=== PATIENT | male | born 1975 | race Two or more races ===

== ENCOUNTER 2019-06-24 23:00 | Emergency (ER) | payer OTHER ==
[~2019-06-24] VITALS: Ht 175.3 cm; Wt 86.2 kg
[2019-06-24] MEDS ORDERED: KETOROLAC TROMETHAMINE 60 MG/2 ML VIAL IM ONE (23:15)
[2019-06-24] MEDS ORDERED: KETOROLAC TROMETHAMINE 30 MG/ML VIAL ONE (23:21)
--- NOTE | 2019-06-25 00:16 | Diagnostic Imaging Report ---
Exam: Lumbar spine 2 views History: Fall Comparison: CT lumbar spine same day Findings: There are 5 nonrib-bearing lumbar-type vertebral bodies. No acute displaced fracture or subluxation though evaluation is limited on the lateral radiograph secondary to suboptimal patient positioning. Intervertebral disc spaces are relatively well-maintained. Left superior pubic ramus fracture is partially visualized on the frontal radiograph. Impression: Partially visualized left superior pubic ramus fracture. CT scan of the left hip had been requested and performed at the time of this dictation. No acute osseous abnormalities of the lumbar spine despite limitation in positioning for the lateral radiograph. Soft tissue, ligamentous, and spinal cord abnormalities cannot be excluded on the basis of plain radiography, and reference should be made to subsequently performed lumbar spine CT. Signed by: Dr. Balwinder Pereyra M.D. on 06/25/2019 12:13 AM
--- NOTE | 2019-06-25 00:24 | Diagnostic Imaging Report ---
EXAMINATION: CT of the left hip without contrast TECHNIQUE: Spiral CT images of the left hip was performed. Coronal and sagittal reformatted images were available for review. No intravenous contrast was administered. COMPARISON: Lumbar spine radiograph same day CLINICAL HISTORY:Fall DISCUSSION: Bones: There is an acute, minimally displaced comminuted fracture of the superior pubic ramus (series 3 image 80) with extension to the anterior aspect of the acetabulum. Additionally, there is a minimally displaced comminuted fracture of the inferior pubic ramus seen on series 3 image 113. The posterior column of the acetabulum is intact, as are the femoral head, femoral neck, and intertrochanteric femur. Pelvic viscera: Partially visualized urinary bladder is intact. Left external iliac artery and vein are of normal caliber but otherwise poorly evaluated in the absence of intravenous contrast. Soft tissues: Mild soft tissue swelling adjacent to superior and inferior pubic ramus fractures. Left pelvic girdle musculature is otherwise intact. IMPRESSION: Acute, comminuted and minimally displaced fractures of the left superior and inferior pubic rami. The proximal femur is intact. Signed by: Dr. Balwinder Pereyra M.D. on 06/25/2019 12:20 AM
--- NOTE | 2019-06-25 00:29 | Diagnostic Imaging Report ---
History: Fall, back pain Comparison studies: Plain films of the lumbar spine on 06/24/2019 Technique: Axial images were obtained from superior T11 to the sacrum. Coronal and sagittal images reconstructed from the axial data. Dose modulation, iterative reconstruction, and/or weight based adjustment of the mA/kV was utilized to reduce the radiation dose to as low as reasonably achievable. Intravenous contrast: None Findings: Number of non-rib bearing vertebral bodies: 5 Alignment: Normal lordosis. No scoliosis. Soft tissues: No abnormalities. Paraspinal muscles: Unremarkable. Vertebrae: * Bones mildly demineralized. * No fractures, infection or neoplasm. * A lucent defect in the right pars of L5 is associated with sclerotic changes along its margins. (Series 2, image 42). The left pars is intact. No spondylolisthesis. Degenerative changes: * Mildly degenerated discs from T11 through L1, minimal from L1 through S1. * Mild bilateral foraminal stenosis at L4-5 is due to a disc bulge. * Patent spinal canal. No disc herniations. Sacroiliac joints: No degenerative changes. IMPRESSION: 1. No acute abnormalities. 2. 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 The lucent defect in the pars is associated with chronic sclerotic changes. 3. Degenerative changes as described. Signed by: Dr. Monroe Castro M.D. on 06/25/2019 12:25 AM
--- NOTE | 2019-06-25 01:11 | Diagnostic Imaging Report ---
EXAMINATION: CT of the pelvis without TECHNIQUE: Spiral CT images of the pelvis were obtained. Coronal and sagittal reformatted images were available. No intravenous contrast was administered. Coronal and sagittal reformatted images were obtained. COMPARISON: Left hip CT same day CLINICAL HISTORY:Fall DISCUSSION: Bones: Redemonstration of acute fractures of the superior pubic ramus with extension of the acetabulum and the inferior pubic ramus on the left. Proximal left femur is intact. Symphysis pubis is intact. Right hemipelvis shows no acute, displaced fracture. Acute, nondisplaced subtle fracture of the left sacral ala without intra-articular extension or involvement of the neural foramina seen on series 3 image 77. No symphysis pubis diastases. Right-sided L5 pars interarticularis defect. Pelvic viscera: Urinary bladder, prostate, and seminal vesicles are normal. Normal caliber iliac arterial and venous branches otherwise limited evaluation without intravenous contrast. Visualized segments of the small and large bowel show no distention or wall thickening. No pelvic sidewall lymphadenopathy. Left pelvic sidewall intramuscular hematoma (see series 4 image 144). IMPRESSION: Redemonstration of acute, minimally displaced fractures of the left superior pubic ramus with extension to the anterior acetabulum, as well as the left inferior pubic ramus with associated left pelvic sidewall muscular hematoma. Acute, nondisplaced left sacral alar fracture without intra-articular extension or foraminal involvement. Signed by: Dr. Balwinder Pereyra M.D. on 06/25/2019 1:08 AM
[2019-06-25] MEDS ORDERED: MORPHINE SULFATE INJ 4 MG/ML INJ 1ML ONE (02:09)
[2019-06-25] MEDS ORDERED: MORPHINE SULFATE 2 MG/ML SYR 1ML IV STA (02:28)
== END 2019-06-25 02:55 | disposition other institution (70) ==
LOC: FSED 23:00
DX: S32.512A Fracture of superior rim of left pubis, initial encounter for closed fracture (principal); S32.415A Nondisplaced fracture of anterior wall of left acetabulum, initial encounter for closed fracture; S32.392A Other fracture of left ilium, initial encounter for closed fracture; W01.0XXA Fall on same level from slipping, tripping and stumbling without subsequent striking against object, initial encounter; Y92.512 Supermarket, store or market as the place of occurrence of the external cause
CPT/HCPCS: 72100; 72131; 72192; 80053; 85025; 99284; J1885; J2270